=== PATIENT | male | born 1995 | race Caucasian/White ===

== ENCOUNTER 2016-08-30 10:20 | Emergency (ER) | payer OTHER, BC ==
[~2016-08-30 10:20] MED LIST: CLINDAMYCIN HC300 MG PO; LEVAQUIN750 MG PO
== END 2016-08-30 11:30 | disposition home or self-care (01) ==
LOC: CED 10:20 → CFTX 10:20
DX: M79.1 Myalgia (principal); F17.210 Nicotine dependence, cigarettes, uncomplicated; F90.9 Attention-deficit hyperactivity disorder, unspecified type
CPT/HCPCS: 99283

== ENCOUNTER → 2016-09-01 | Outpatient (CLI) | payer OTHER, BC ==
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
== END | disposition home or self-care (01) ==
LOC: CRAD 17:20
DX: S38 Crushing injury and traumatic amputation of abdomen, lower back, pelvis and external genitals (principal); S19.9XXA Unspecified injury of neck, initial encounter; S29.9XXA Unspecified injury of thorax, initial encounter
CPT/HCPCS: 72040; 72070; 72100

== ENCOUNTER 2016-11-07 06:27 | Emergency (ER) | payer BC ==
--- NOTE | ~2016-11-07 | CR7 ---
[facility] A Service of [facility] & [facility] RADIOLOGY TEXT RESULTS PATIENT: PAVAN CASTILLO LOCATION: [facility] : 95 UNIT #: [id number] AGE: [address]: Dillon Chacon MD SEX: M ORDER DR: [id number] [id number] [place], [place] [address] [id number] E MR#: [id number] Acc #: [id number] NAME: PAVAN CASTILLO : 1995 SEX: M STUDY DATE/TIME: 11/07/2016 8:19 UNIT: [facility] ROOM: STUDY DESCRIPTION: CR Abdomen Single AP View Attending Physician: Dillon Chacon M.D. Ordering Physician: Dillon Chacon M.D. Primary Care Physician: No Primary Care Physician MEDICAL IMAGING REPORT This report is preliminary unless electronic signature is present EXAM AP abdomen 1-view 11/07/2016 COMPARISON None. HISTORY Right-side abdominal pain since this morning. FINDINGS Normal. Normal bowel gas pattern, no evidence of obstruction or free air on this single view, no mass effect or abnormal calcifications seen. Dictated by... Parag Knox M.D. THIS IS AN ELECTRONICALLY VERIFIED REPORT Parag Knox M.D. at 11/09/2016 2:07 PM TEV/df TD: 11/07/2016 14:21 JOB #: [id number] MEDICAL IMAGING REPORT Page 1 of 1 COPY
[2016-11-07 08:17] LABS: URINE SOURCE CLEAN CATCH
[2016-11-07 08:21] LABS: URINE APPEARANCE CLOUDY; URINE BILIRUBIN NEG (NEG); URINE BLOOD 3+ (NEG); URINE COLOR DK YELLOW; URINE GLUCOSE NEG (NEG); URINE KETONE NEG (NEG); URINE LEUKOCYTE ESTERASE TRACE (NEG); URINE NITRATE NEG (NEG); URINE PROTEIN 1+ (NEG); URINE SPECIFIC GRAVITY 1.028 (1.003-1.035)
[2016-11-07 08:24] LABS: CULTURE INDICATED? YES; URINE BACTERIA AUWI NEG (NEGATIVE); URINE SQUAMOUS EPITHELIAL CELL NONE SEEN /[HPF]
[2016-11-07 08:42] LABS: URINE CRYSTALS CALCIUM OXALATE /[HPF]
[2016-11-07 08:43] LABS: URINE MUCUS PRESENT
== END 2016-11-07 09:49 | disposition home or self-care (01) ==
LOC: CED 06:27
PROVIDERS: Emergency Medicine
DX: N20.1 Calculus of ureter (principal); Z87.442 Personal history of urinary calculi; F90.9 Attention-deficit hyperactivity disorder, unspecified type; F17.200 Nicotine dependence, unspecified, uncomplicated; Z79.899 Other long term (current) drug therapy
CPT/HCPCS: 74000; 81003; 87086; 96372; 99284; J1885